=== PATIENT | male | born 1940 | race Caucasian/White ===

== ENCOUNTER 2016-09-17 21:12 | Inpatient (IN) | payer MEDICARE ==
[~2016-09-17] VITALS: Ht 177.8 cm; Wt 87.5 kg
[2016-09-17 21:35] VITALS: BP 120/72
[2016-09-17 22:15] LABS: BASOPHILS % (AUTO) 0.8 % (0.0-2.0); EOSINOPHILS % (AUTO) 1.5 % (0.0-3.0); LYMPHOCYTES % (AUTO) 31.9 % (20.0-45.0); MEAN CORPUSCULAR HEMOGLOBIN 28.5 PG (27.0-31.0); MEAN CORPUSCULAR VOLUME 89 FL (80-99); MEAN PLATELET VOLUME 10.6 FL (6.5-10.1); MONOCYTES % (AUTO) 7.5 % (1.0-10.0); NEUTROPHILS % (AUTO) 58.2 % (45.0-75.0); PLATELET COUNT 160 K/UL (150-450); RED BLOOD COUNT 5.02 M/UL (4.70-6.10); RED CELL DISTRIBUTION WIDTH 12.9 % (11.6-14.8); WHITE BLOOD COUNT 14.1 K/UL (4.8-10.8)
[2016-09-17 22:32] LABS: PROTHROMBIN TIME 9.9 SEC (9.30-11.50)
[2016-09-17 22:33] LABS: ALANINE AMINOTRANSFERASE 9 U/L (3-41); ALBUMIN/GLOBULIN RATIO 1.1 (1.0-2.7); ANION GAP 16 (5-15); ASPARTATE AMINO TRANSFERASE 13 U/L (5-40); CALCIUM 8.9 mg/dL (8.6-10.2); CARBON DIOXIDE 24 mEQ/L (20-30); CHLORIDE 97 mEQ/L (98-107); CREATININE 1.7 mg/dL (0.7-1.2); HEMOLYSIS 8; POTASSIUM 5.5 mEQ/L (3.4-4.9); SODIUM 137 mEQ/L (135-145); TOTAL PROTEIN 6.8 g/dL (6.6-8.7)
[2016-09-17 22:34] LABS: TROPONIN I < 0.30 ng/mL (<=0.30)
--- NOTE | 2016-09-17 22:42 | Emergency Room Report ---
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 Denies any chest pain shortness of breath denies any back or flank pain denies any dysuria frequency Allergies: Coded Allergies: No Known Allergies (Unverified , 09/17/16) Patient History Past Medical History: see triage record Pertinent Family History: none Reviewed Nursing Documentation: PMH: Agreed, PSxH: Agreed Nursing Documentation-PM Past Medical History: No History, Except For Hx Cardiac Problems: Yes - Bipass 1997 Hx Diabetes: Yes Review of Systems All Other Systems: negative except mentioned in HPI Physical Exam Vital Signs Date Time Temp Pulse Resp B/P Pulse Ox O2 Delivery O2 Flow Rate FiO2 09/17/16 21:28 98.1 91 14 120/72 99 Room Air Sp02 EP Interpretation: reviewed, normal General Appearance: well appearing, no apparent distress Head: normocephalic, atraumatic Eyes: bilateral eye EOMI, bilateral eye PERRL ENT: hearing grossly normal, normal pharynx, TMs + canals normal, uvula midline Neck: full range of motion, supple, no meningismus, no bony tend Respiratory: lungs clear, normal breath sounds, no rhonchi, no respiratory distress, no retraction, no accessory muscle use Cardiovascular #1: normal peripheral pulses, regular rate, rhythm, no edema, no gallop, no JVD, no murmur Gastrointestinal: normal bowel sounds, non tender, soft, no mass, no organomegaly, non-distended, no guarding, no hernia, no pulsatile mass, no rebound Genitourinary: no CVA tenderness Musculoskeletal: normal inspection Neurologic: oriented x3, responsive, c consultant III-XII nml as tested, motor strength/ tone normal, sensory intact Psychiatric: mood/affect normal Skin: normal color, no rash, warm/dry, palpation normal Lymphatic: normal inspection, no adenopathy Medical Decision Making Diagnostic Impression: Primary Impression: Renal failure Additional Impression: Hyperkalemia ER Course Patient is a fairly complex patient with multiple differential to consideration including but not limited to cardiac cardiopulmonary and vascular emergencies Patient's potassium level is elevated Kidney function also shows elevated BUN and creatinine These findings are concerning Patient had acute intervention of the elevated potassium Secondary to insurance purposes/HMO designation Patient was admitted to appropriate hospitalist The patient's primary physician was also notified Labs Test 09/17/16 21:58 White Blood Count 14.1 K/UL (4.8-10.8) Red Blood Count 5.02 M/UL (4.70-6.10) Hemoglobin 14.3 G/DL (14.2-18.0) Hematocrit 44.8 % (42.0-52.0) Mean Corpuscular Volume 89 FL (80-99) Mean Corpuscular Hemoglobin 28.5 PG (27.0-31.0) Mean Corpuscular Hemoglobin Concent 32.0 G/DL (32.0-36.0) Red Cell Distribution Width 12.9 % (11.6-14.8) Platelet Count 160 K/UL (150-450) Mean Platelet Volume 10.6 FL (6.5-10.1) Neutrophils (%) (Auto) 58.2 % (45.0-75.0) Lymphocytes (%) (Auto) 31.9 % (20.0-45.0) Monocytes (%) (Auto) 7.5 % (1.0-10.0) Eosinophils (%) (Auto) 1.5 % (0.0-3.0) Basophils (%) (Auto) 0.8 % (0.0-2.0) Prothrombin Time 9.9 SEC (9.30-11.50) Prothromb Time International Ratio 1.0 (0.9-1.1) Activated Partial Thromboplast Time 29 SEC (23-33) Sodium Level 137 mEQ/L (135-145) Potassium Level 5.5 mEQ/L (3.4-4.9) Chloride Level 97 mEQ/L (98-107) Carbon Dioxide Level 24 mEQ/L (20-30) Anion Gap 16 (5-15) Blood Urea Nitrogen 41 mg/dL (7-23) Creatinine 1.7 mg/dL (0.7-1.2) Estimat Glomerular Filtration Rate mL/min (>60) Glucose Level 371 mg/dL (74-106) Calcium Level 8.9 mg/dL (8.6-10.2) Total Bilirubin 0.3 mg/dL (0.0-1.2) Aspartate Amino Transf (AST/SGOT) 13 U/L (5-40) Alanine Aminotransferase (ALT/SGPT) 9 U/L (3-41) Alkaline Phosphatase 65 U/L (40-129) Total Creatine Kinase 92 U/L (38-174) Creatine Kinase MB 2.8 ng/mL (< 6.7) Creatine Kinase MB Relative Index 3.0 Troponin I < 0.30 ng/mL (<=0.30) Pro-B-Type Natriuretic Peptide 244 pg/mL (0-450) Total Protein 6.8 g/dL (6.6-8.7) Albumin 3.7 g/dL (3.5-5.2) Globulin 3.1 g/dL Albumin/Globulin Ratio 1.1 (1.0-2.7) EKG Diagnostic Results Rate: normal Rhythm: NSR ST Segments: other - Nonspecific ST and T-wave changes Rhythm Strip Diag. Results EP Interpretation: yes Rate: 74 Rhythm: NSR, no PVC's, no ectopy Last Vital Signs Date Time Temp Pulse Resp B/P Pulse Ox O2 Delivery O2 Flow Rate FiO2 09/17/16 21:35 98.1 76 14 120/72 99 Room Air Status: improved Disposition: ADMITTED INPATIENT Condition: Serious ANUPAMA ZAMUDIO D.O. Sep 17, 2016 22:42
[2016-09-17 22:45] LABS: CKMB 2.8 ng/mL (< 6.7)
[2016-09-17] MEDS ORDERED: Mylanta II UD 30ml ORAL PRN (23:15)
[2016-09-17] MEDS ORDERED: LORazepam Inj 2mg/ml 1ml IV PRN (23:15)
[2016-09-17] MEDS ORDERED: Miralax 17gm pkt ORAL PRN (23:15)
[2016-09-17] MEDS ORDERED: Zolpidem 5mg tab ORAL PRN (23:15)
[2016-09-17] MEDS ORDERED: Morphine Sulfate 2mg/ml Inj IVP PRN (23:15)
[2016-09-17 23:22] VITALS: BP 124/73
[2016-09-17 23:30] VITALS: BP 140/66
[2016-09-17] MEDS ORDERED: Sodium Polystyrene Sulfonate 15gm Powder ORAL ONE (23:45)
[2016-09-18 01:35] VITALS: BP 139/68
[2016-09-18 02:00] VITALS: BP 126/50
[2016-09-18] MEDS ORDERED: UNOBMED (03:10)
[2016-09-18] MEDS ORDERED: ASPIR 8181 MG ORAL ×2 (05:06→11:12)
[2016-09-18] MEDS: NovoLOG Insulin Flexpen SUBQ SCH ×2 (06:09→12:10)
[2016-09-18] MEDS ORDERED: NovoLOG Insulin Flexpen SUBQ SCH ×2 (06:30)
[2016-09-18 07:16] LABS: BASOPHILS % (AUTO) 0.6 % (0.0-2.0); EOSINOPHILS % (AUTO) 1.8 % (0.0-3.0); LYMPHOCYTES % (AUTO) 31.6 % (20.0-45.0); MEAN CORPUSCULAR HEMOGLOBIN 28.4 PG (27.0-31.0); MEAN CORPUSCULAR HGB CONC 32.9 G/DL (32.0-36.0); MEAN CORPUSCULAR VOLUME 86 FL (80-99); MEAN PLATELET VOLUME 11.4 FL (6.5-10.1); MONOCYTES % (AUTO) 7.4 % (1.0-10.0); NEUTROPHILS % (AUTO) 58.6 % (45.0-75.0); PLATELET COUNT 148 K/UL (150-450); RED BLOOD COUNT 4.85 M/UL (4.70-6.10); WHITE BLOOD COUNT 12.9 K/UL (4.8-10.8)
[2016-09-18 07:38] LABS: THYROID STIMULATING HORMONE 0.684 uIU/mL (0.300-4.500)
[2016-09-18 07:43] LABS: ALANINE AMINOTRANSFERASE 8 U/L (3-41); ALBUMIN/GLOBULIN RATIO 1.1 (1.0-2.7); ANION GAP 16 (5-15); ASPARTATE AMINO TRANSFERASE 12 U/L (5-40); CALCIUM 8.8 mg/dL (8.6-10.2); CARBON DIOXIDE 24 mEQ/L (20-30); CHLORIDE 99 mEQ/L (98-107); CHOLESTEROL 111 mg/dL (< 200); CREATININE 1.5 mg/dL (0.7-1.2); HEMOLYSIS 5; LDL CHOLESTEROL (CALC.) 31 mg/dL (60-99); POTASSIUM 4.7 mEQ/L (3.4-4.9); SODIUM 139 mEQ/L (135-145); TOTAL PROTEIN 6.5 g/dL (6.6-8.7)
[2016-09-18] MEDS ORDERED: ZETIA10 MG ORAL (11:06)
[2016-09-18] MEDS ORDERED: METOPROLOL TART50 MG ORAL (11:12)
[2016-09-18] MEDS ORDERED: LOSARTAN POTASS50 MG ORAL (11:12)
[2016-09-18] MEDS ORDERED: PLAVIX75 MG ORAL (11:12)
[2016-09-18] MEDS ORDERED: PROTONIX40 MG ORAL (11:12)
[2016-09-18] MEDS ORDERED: CRESTOR10 M2 ORAL (11:12)
[2016-09-18] MEDS ORDERED: BENAZEPRIL HCL10 MG ORAL (11:12)
[2016-09-18 12:00] VITALS: BP 120/72
--- NOTE | 2016-09-18 12:52 | History and Physical ---
History of Present Illness General Date patient seen: Sep 18, 2016 Reason for Hospitalization: Abnormal Labs Present Illness HPI 76 year old male with hx of DM and CAD, was found to have high potassium level. He was sent to Er for evaluation. He had a potassium reading of 6.1 on a outpatient laboratory work He was found to be in renal failure and admitted for further work up. Allergies: Coded Allergies: No Known Allergies (Unverified , 09/17/16) Medication History Scheduled Aspirin* (Aspir 81*), 81 MG ORAL DAILY, (Reported) Aspirin* (Aspir 81*), 81 MG ORAL DAILY, (Reported) Benazepril Hcl* (Benazepril Hcl*), 5 MG ORAL DAILY, (Reported) Clopidogrel Bisulfate* (Plavix*), 75 MG ORAL DAILY, (Reported) Ezetimibe (Zetia*), 10 MG ORAL DAILY, (Reported) Losartan Potassium* (Losartan Potassium*), 60 MG ORAL DAILY, (Reported) Metoprolol Tartrate* (Metoprolol Tartrate*), 50 MG ORAL DAILY, (Reported) Pantoprazole* (Protonix*), 40 MG ORAL DAILY, (Reported) Rosuvastatin Calcium* (Crestor*), 10 MG ORAL DAILY, (Reported) Miscellaneous Medications Unable to Obtain Medications (Unable To Obtain Meds), (Reported) Patient History Healthcare decision maker Resuscitation status Full Code Advanced Directive on File No Past Medical/Surgical History Past Medical/Surgical History: (1) Diabetes mellitus (2) HTN (hypertension) Review of Systems All Other Systems: negative except mentioned in HPI Physical Exam Lines, tubes and drains: peripheral, central line HEENT: normocephalic, atraumatic, mucous membranes moist Neck: normal alignment Respiratory/Chest: chest wall non-tender, lungs clear Cardiovascular/Chest: normal peripheral pulses, normal rate Last 24 Hour Vital Signs Date Time Temp Pulse Resp B/P Pulse Ox O2 Delivery O2 Flow Rate FiO2 09/18/16 08:07 95 09/18/16 04:19 92 09/18/16 02:30 89 09/18/16 02:00 98.6 89 20 126/50 93 Room Air 09/18/16 01:35 98.4 87 16 139/68 100 Room Air 09/18/16 01:35 98.4 87 16 139/68 100 Room Air 09/17/16 23:30 98.2 86 18 140/66 100 Room Air 09/17/16 23:22 98.1 72 14 124/73 100 Room Air 09/17/16 21:35 98.1 76 14 120/72 99 Room Air 09/17/16 21:28 98.1 91 14 120/72 99 Room Air Intake and Output 09/17/16 09/18/16 19:00 07:00 Intake Total 500 ml Balance 500 ml Intake IV Total 500 ml # Voids 2 Laboratory Tests Test 09/17/16 21:58 09/18/16 05:15 White Blood Count 14.1 K/UL (4.8-10.8) H 12.9 K/UL (4.8-10.8) H Red Blood Count 5.02 M/UL (4.70-6.10) 4.85 M/UL (4.70-6.10) Hemoglobin 14.3 G/DL (14.2-18.0) 13.8 G/DL (14.2-18.0) L Hematocrit 44.8 % (42.0-52.0) 42.0 % (42.0-52.0) Mean Corpuscular Volume 89 FL (80-99) 86 FL (80-99) Mean Corpuscular Hemoglobin 28.5 PG (27.0-31.0) 28.4 PG (27.0-31.0) Mean Corpuscular Hemoglobin Concent 32.0 G/DL (32.0-36.0) 32.9 G/DL (32.0-36.0) Red Cell Distribution Width 12.9 % (11.6-14.8) 13.0 % (11.6-14.8) Platelet Count 160 K/UL (150-450) 148 K/UL (150-450) L Mean Platelet Volume 10.6 FL (6.5-10.1) H 11.4 FL (6.5-10.1) H Neutrophils (%) (Auto) 58.2 % (45.0-75.0) 58.6 % (45.0-75.0) Lymphocytes (%) (Auto) 31.9 % (20.0-45.0) 31.6 % (20.0-45.0) Monocytes (%) (Auto) 7.5 % (1.0-10.0) 7.4 % (1.0-10.0) Eosinophils (%) (Auto) 1.5 % (0.0-3.0) 1.8 % (0.0-3.0) Basophils (%) (Auto) 0.8 % (0.0-2.0) 0.6 % (0.0-2.0) Prothrombin Time 9.9 SEC (9.30-11.50) Prothromb Time International Ratio 1.0 (0.9-1.1) Activated Partial Thromboplast Time 29 SEC (23-33) Sodium Level 137 mEQ/L (135-145) 139 mEQ/L (135-145) Potassium Level 5.5 mEQ/L (3.4-4.9) H 4.7 mEQ/L (3.4-4.9) Chloride Level 97 mEQ/L (98-107) L 99 mEQ/L (98-107) Carbon Dioxide Level 24 mEQ/L (20-30) 24 mEQ/L (20-30) Anion Gap 16 (5-15) H 16 (5-15) H Blood Urea Nitrogen 41 mg/dL (7-23) H 35 mg/dL (7-23) H Creatinine 1.7 mg/dL (0.7-1.2) H 1.5 mg/dL (0.7-1.2) H Estimat Glomerular Filtration Rate mL/min (>60) mL/min (>60) Glucose Level 371 mg/dL (74-106) H 239 mg/dL (74-106) #H Calcium Level 8.9 mg/dL (8.6-10.2) 8.8 mg/dL (8.6-10.2) Total Bilirubin 0.3 mg/dL (0.0-1.2) 0.4 mg/dL (0.0-1.2) Aspartate Amino Transf (AST/SGOT) 13 U/L (5-40) 12 U/L (5-40) Alanine Aminotransferase (ALT/SGPT) 9 U/L (3-41) 8 U/L (3-41) Alkaline Phosphatase 65 U/L (40-129) 71 U/L (40-129) Total Creatine Kinase 92 U/L (38-174) Creatine Kinase MB 2.8 ng/mL (< 6.7) Creatine Kinase MB Relative Index 3.0 Troponin I < 0.30 ng/mL (<=0.30) Pro-B-Type Natriuretic Peptide 244 pg/mL (0-450) Total Protein 6.8 g/dL (6.6-8.7) 6.5 g/dL (6.6-8.7) L Albumin 3.7 g/dL (3.5-5.2) 3.5 g/dL (3.5-5.2) Globulin 3.1 g/dL 3.0 g/dL Albumin/Globulin Ratio 1.1 (1.0-2.7) 1.1 (1.0-2.7) Triglycerides Level 258 mg/dL (< 150) H Cholesterol Level 111 mg/dL (< 200) LDL Cholesterol 31 mg/dL (60-99) L HDL Cholesterol 28 mg/dL (> 60) Cholesterol/HDL Ratio 4.0 (3.3-4.4) Thyroid Stimulating Hormone (TSH) 0.684 uIU/mL (0.300-4.500) Height (Feet): 5 Height (Inches): 10.00 Weight (Pounds): 193 Medications Current Medications Medications (Trade) Dose Ordered Sig/Gisela Route PRN Reason Start Time Stop Time Status Last Admin Dose Admin Acetaminophen (Tylenol) 650 mg Q4H PRN ORAL fever 09/17/16 23:15 10/17/16 23:14 Al Hydroxide/Mg Hydroxide (Mylanta II) 30 ml Q6H PRN ORAL dyspepsia 09/17/16 23:15 10/17/16 23:14 Dextrose (Dextrose 50%) STAT PRN IV Hypoglycemia 09/17/16 23:15 10/17/16 23:14 Insulin Aspart (NovoLOG) BEFORE MEALS AND HS SUBQ 09/18/16 06:30 10/18/16 06:29 09/18/16 12:10 Lorazepam (Ativan 2mg/ml 1ml) 0.5 mg Q4H PRN IV For Anxiety 09/17/16 23:15 09/24/16 23:14 Morphine Sulfate (Morphine Sulfate) 1 mg Q4H PRN IVP For Pain 09/17/16 23:15 09/24/16 23:14 Ondansetron HCl (Zofran) 4 mg Q6H PRN IVP Nausea & Vomiting 09/17/16 23:15 10/17/16 23:14 Polyethylene Glycol (Miralax) 17 gm HSPRN PRN ORAL Constipation 09/17/16 23:15 10/17/16 23:14 Zolpidem Tartrate (Ambien) 5 mg HSPRN PRN ORAL Insomnia 09/17/16 23:15 10/17/16 23:14 Assessment/Plan Problem List: (1) Hyperkalemia ICD Codes: E87.5 - Hyperkalemia SNOMED: 20346445 (2) Renal failure ICD Codes: N19 - Unspecified kidney failure SNOMED: 99425117 (3) Diabetes mellitus ICD Codes: E11.9 - Type 2 diabetes mellitus without complications SNOMED: 49322046 (4) HTN (hypertension) ICD Codes: I10 - Essential (primary) hypertension SNOMED: 78023205 Assessment/Plan Iv fluids repeat K symptomatic treatment renal evaluation ORLANDO SINHA Sep 18, 2016 12:52
[2016-09-18 14:01] LABS: MAGNESIUM 1.7 mg/dL (1.7-2.5); PHOSPHORUS 3.7 mg/dL (2.5-4.8); URIC ACID 8.9 mg/dL (3.0-7.5)
[2016-09-18 14:12] LABS: FREE T3 2.7 pg/mL (2.3-4.2)
[2016-09-18 15:20] LABS: APPEARANCE,URINE CLEAR; KETONES,URINE NEGATIVE (NEGATIVE); LEUKOCYTE ESTERASE ,URINE NEGATIVE (NEGATIVE); NITRITE,URINE NEGATIVE (NEGATIVE); PH,URINE 7 (4.5-8.0); PROTEIN,URINE 2+ (NEGATIVE); UROBILINOGEN,URINE NORMAL MG/DL (0.0-1.0)
[2016-09-18 15:49] LABS: RBC,URINE 0-2 /HPF (0 - 0)
[2016-09-18 15:50] LABS: BACTERIA,URINE OCCASIONAL /HPF; WBC,URINE 0-2 /HPF (0 - 0)
--- NOTE | 2016-09-19 07:18 | Discharge Summary 2 SIG ---
DATE OF ADMISSION: 09/17/2016 DATE OF DISCHARGE: 09/18/2016 BRIEF HOSPITAL COURSE: The patient is a 76-year-old male with history of diabetes mellitus and coronary artery disease, was found to have high potassium level. He was sent to ER for evaluation. He had a potassium reading of 6.1 on outpatient laboratory and was found to be in renal failure. The patient was admitted for further workup. He was given IV hydrations. Sugars were monitored. The following day, laboratories showed normal potassium level, renal function was improving. The patient was discharged home due to rapid, unexpected improvement in patient's condition. He was advised to follow up with PMD as outpatient. FINAL DIAGNOSES: 1. Hyperkalemia. 2. Acute renal failure. 3. Diabetes mellitus. 4. Hypertension. Yogesh Dhillon M.D. I have been assigned to dictate discharge summary on this account and I was not involved in the patient's management. Vielka Dumont N.P. DR: BERNABE JOB#: [id number] CC: LUISA
[2016-09-19 08:55] LABS: CORTISOL LC 7.1 ug/dL (.)
--- NOTE | 2016-09-24 16:18 | Diagnostic Imaging Report ---
APPROVED REPORT CPT Code: 85543 Present Symptoms Comments: Hx of CABG (right leg saphenous vein) BILATERAL: Imaging reveals a patent deep venous system bilaterally. There is no evidence of thrombus within the femoral, popliteal or tibial segments. The left greater saphenous vein is also within normal limits. Doppler indicates normal spontaneous flow within these segments.
--- NOTE | 2016-10-07 14:18 | Cardiology Report ---
APPROVED REPORT EKG Measurement Heart [id number] Normal sinus rhythm Possible Left atrial enlargement Incomplete right bundle branch block Borderline ECG
== END 2016-09-18 16:00 | disposition home or self-care (01) | DRG 641 ==
LOC: EDBEDREQ 21:41 → EMR 23:06 → 2E 23:07 → EDBEDREQ 09-18 01:28 → EMR 09-18 01:35
DX: E87.5 Hyperkalemia (principal); N17.9 Acute kidney failure, unspecified; E11.9 Type 2 diabetes mellitus without complications; I25.10 Atherosclerotic heart disease of native coronary artery without angina pectoris; I10 Essential (primary) hypertension; Z79.4 Long term (current) use of insulin
CPT/HCPCS: 36415; 80053; 80061; 81001; 82436; 82533; 82550; 82553; 82962; 83735; 83880; 83930; 83935; 84100; 84133; 84300; 84439; 84443; 84481; 84484; 84550; 85025; 85610; 85730; 89050; 93005; 93970

== ENCOUNTER 2016-10-30 22:09 | Emergency (ER) | payer MEDICARE ==
[~2016-10-30] VITALS: Ht 177.8 cm; Wt 92.5 kg
[~2016-10-30 22:09] MED LIST: ASPIR 8181 MG ORAL; BENAZEPRIL HCL10 MG ORAL; CRESTOR10 M2 ORAL; LOSARTAN POTASS50 MG ORAL; METOPROLOL TART50 MG ORAL; PLAVIX75 MG ORAL; PROTONIX40 MG ORAL; UNOBMED; ZETIA10 MG ORAL
[2016-10-30] MEDS ORDERED: Neosporin Oint Ud Pkt TOP ONE (22:15)
[2016-10-30] MEDS ORDERED: TdaP Vaccine 0.5ml Syr IM ONE (22:15)
[2016-10-30] MEDS ORDERED: Lidocaine 1% 10mg/ml/EPI 0.01mg/ml 50ml INJ ONE (22:15)
[2016-10-30] MEDS ORDERED: Lidocaine 1% 10mg/ml/Epi 0.005mg/ml 30ml vial INJ ONE (23:39)
--- NOTE | 2016-10-30 23:57 | Emergency Room Report ---
History of Present Illness General Chief Complaint: Head Injury Source: Patient Present Illness HPI Patient fell and hit R head. 3 hours ago. No LOC. Some stinging pain there. Drove self here. Bleeding controlled with pressure. Unknown tetanus. No neck or extremity pain. No NV. On plavix. Had mild renal insufficiency in Feb with slightly high potassium. States no longer problem. No palpitations. 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 Reviewed Nursing Documentation: PMH: Agreed, PSxH: Agreed Nursing Documentation-PM Past Medical History: No History, Except For Hx Cardiac Problems: Yes - Bipass 1997 Hx Diabetes: Yes Hx Cancer: No Hx Gastrointestinal Problems: No Hx Neurological Problems: No Review of Systems All Other Systems: negative except mentioned in HPI Physical Exam Vital Signs Date Time Temp Pulse Resp B/P Pulse Ox O2 Delivery O2 Flow Rate FiO2 10/30/16 22:15 97.9 95 16 134/78 100 Room Air Sp02 EP Interpretation: reviewed, normal General Appearance: well appearing, no apparent distress, GCS 15 Head: normocephalic, other - R scalp laceration Eyes: bilateral eye EOMI, bilateral eye PERRL, bilateral eye normal inspection ENT: moist mucus membranes Neck: full range of motion, supple, no bony tend Respiratory: chest non-tender, lungs clear, normal breath sounds Cardiovascular #1: regular rate, rhythm Cardiovascular #2: 2+ radial (R) Gastrointestinal: normal inspection, normal bowel sounds, non tender, non- distended Musculoskeletal: back normal, gait/station normal, normal range of motion, non- tender, no calf tenderness, pelvis stable Neurologic: alert, oriented x3, motor strength/tone normal, DTRs symmetric, sensory intact, cerebellar normal, normal gait, speech normal Psychiatric: mood/affect normal Skin: warm/dry, laceration - R parietal area - 5 cm Procedures Laceration/Wound Repair Laceration/Wound Repair : Consent: Verbal Wound Location: head Wound's Depth, Shape: into muscle, linear, irregular Wound Length (cm): 5 Wound Explored: clean Betadine Prep?: Yes Anesthesia: Lidocaine w/ Epi Wound Debrided: none (hair removed - long) Wound Repaired With: rashaun Sterile Dressing Applied?: Yes Patient Tolerated: Well Complications: None Medical Decision Making Diagnostic Impression: Primary Impression: Head contusion Qualified Codes: S00.03XA - Contusion of scalp, initial encounter Additional Impression: Scalp laceration Qualified Codes: S01.01XA - Laceration without foreign body of scalp, initial encounter ER Course Patient post non-syncopal fall and head injury with lac. On plavix. CT indicated. Needs rashaun or sutures. Also needs tetanus. Declines pain medicine. CT no bleed or fx. Lac repaired. Still declines pain medicine. Patient stable for outpatient observation and treatment. 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 10/31/16 Referrals: [facility],REFERRING (PCP) Blake Ferreira M.D. Oct 30, 2016 23:57
[2016-10-31] MEDS ORDERED: BACITRACIN ZIN1 EAC1 TP (00:01)
[2016-10-31 00:12] VITALS: BP 134/78
[2016-10-31 00:13] VITALS: BP 134/78
--- NOTE | 2016-10-31 11:58 | Diagnostic Imaging Report ---
Indication: TRAUMA, laceration of right lateral side of head Technique: spiral acquisitions obtained through the brain. Angled axial and coronal 5 x 5 mm slices were reconstructed. No IV contrast utilized. Radiation dose was minimized using automated exposure control Total dose length product 1453 mGycm. CTDIvol(s) 70 mGy Comparison: none FINDINGS: No acute hemorrhage or edema. No mass effect or midline shift. There is age-related enlargement of the ventricles and extra axial CSF spaces. There is periventricular deep white matter ischemic change. Normal chandra-white differentiation. Visualized orbits are unremarkable. Visualized sinuses are unremarkable. Intact calvarium. There is a small lacunar infarct in the right high parietal deep white matter. A few interval is seen in the right temporal scalp soft tissues, consistent with stated clinical history of scalp laceration. IMPRESSION: Chronic and age-related changes. Negative for acute intracranial bleed or mass effect Evidence of soft tissue trauma to the right lateral scalp. This agrees with the preliminary interpretation provided overnight by [facility] teleradiology service. The CT scanner at [facility] is accredited by the [employer] and the scans are performed using protocols designed to limit radiation exposure to as low as reasonably achievable to attain images of sufficient resolution adequate for diagnostic evaluation
== END 2016-10-31 00:15 | disposition home or self-care (01) ==
LOC: EMR 22:25
DX: S00.93XA Contusion of unspecified part of head, initial encounter (principal); S01.01XA Laceration without foreign body of scalp, initial encounter; W19.XXXA Unspecified fall, initial encounter; Y93.9 Activity, unspecified; Y92.9 Unspecified place or not applicable; Z23 Encounter for immunization; E11.9 Type 2 diabetes mellitus without complications
CPT/HCPCS: 70450; 90471; 90715

== ENCOUNTER 2016-11-09 15:04 | Emergency (ER) | payer MEDICARE, OTHER ==
[~2016-11-09] VITALS: Ht 177.8 cm; Wt 93.0 kg
[~2016-11-09 15:04] MED LIST changes: +BACITRACIN ZIN1 EAC1 TP
[2016-11-09 15:22] VITALS: BP 131/74
--- NOTE | 2016-11-09 15:31 | Emergency Room Report ---
History of Present Illness General Chief Complaint: Wound Recheck/Suture Removal Source: Patient Present Illness HPI Patient is a 76-year-old male who presented for staple removal after recent injury. Patient apparently had rashaun placed one week ago. He denied any pain or other complaints at this time. Patient had reportedly had a fall. He denied any nausea vomiting or headache. He denied any fever or discharge Allergies: Coded Allergies: No Known Allergies (Unverified , 09/17/16) Patient History Past Medical History: see triage record Reviewed Nursing Documentation: PMH: Agreed, PSxH: Agreed Nursing Documentation-PMH Past Medical History: No History, Except For Hx Cardiac Problems: Yes - Bypass Hx Diabetes: Yes Hx Cancer: No Hx Gastrointestinal Problems: No Hx Neurological Problems: No Review of Systems All Other Systems: negative except mentioned in HPI Physical Exam Vital Signs Date Time Temp Pulse Resp B/P Pulse Ox O2 Delivery O2 Flow Rate FiO2 11/09/16 15:16 98.1 86 16 127/72 96 Room Air General Appearance: well appearing, no apparent distress, alert, GCS 15 Head: normocephalic, other - healed laceration ENT: hearing grossly normal, normal voice Neck: full range of motion, supple Respiratory: no respiratory distress, speaking full sentences Musculoskeletal: no calf tenderness Neurologic: other - antalgic gait Psychiatric: mood/affect normal Skin: other - healed laceration, no infection Medical Decision Making Diagnostic Impression: Primary Impression: Encounter for removal of rashaun ER Course Patient presented for wound check. Differential diagnosis included was not limited to infected wound, nonhealed wound, neuroma, healed wound. Patient's benign exam and does not appear to require any further imaging or laboratory testing at this time. Wound appears well-healed and rashaun removed. The patient is advised to follow up with primary care doctor i as needed. Patient is advised to return if any worsening condition or if any changes in status that are concerning. Last Vital Signs Date Time Temp Pulse Resp B/P Pulse Ox O2 Delivery O2 Flow Rate FiO2 11/09/16 15:22 98.2 89 17 131/74 97 Room Air Status: improved Disposition: HOME, SELF-CARE Condition: Stable Patient Instructions: Wound Closure Removal Jericho Steele Nov 09, 2016 15:30
== END 2016-11-09 15:29 | disposition home or self-care (01) ==
LOC: EMR 15:25
DX: Z48.02 Encounter for removal of sutures (principal); E11.9 Type 2 diabetes mellitus without complications; Z95.1 Presence of aortocoronary bypass graft
CPT/HCPCS: 99282